=== PATIENT | male | born 1960 | race Caucasian/White ===

== ENCOUNTER 2022-05-31 08:30 | Inpatient (IN) | payer MEDICAID ==
[~2022-05-31] VITALS: Ht 172.7 cm; Wt 85.6 kg
[2022-05-31] MEDS ORDERED: OLAN10TA74 PO (08:34)
[2022-05-31] MEDS ORDERED: NITR0.4T52 SL (08:34)
[2022-05-31] MEDS ORDERED: SERT-158 PO (08:34)
[2022-05-31] MEDS ORDERED: QUET25TA PO (08:34)
[2022-05-31] MEDS ORDERED: FLUO10CA24 PO (08:34)
[2022-05-31 10:55] LABS: BASOPHILS % (AUTO) 0.4 % (0.0-2.0); EOSINOPHILS % (AUTO) 0.5 % (1.0-6.0); HEMATOCRIT 43.7 % (41-53); HEMOGLOBIN 14.8 g/dL (13.5-17.5); LYMPHOCYTES # (AUTO) 2.3 K/uL (1.0-4.8); LYMPHOCYTES % (AUTO) 29.8 % (22.0-44.0); MEAN CORPUSCULAR HEMOGLOBIN 32.4 pg (26.0-34.0); MEAN CORPUSCULAR HGB CONC 33.9 G/dL (31.0-37.0); MEAN CORPUSCULAR VOLUME 96 fL (80-100); MONOCYTES # (AUTO) 0.6 K/uL (0.1-1.0); MONOCYTES % (AUTO) 7.8 % (2.0-9.0); NEUTROPHILS # (AUTO) 4.8 K/uL (1.8-7.7); NEUTROPHILS % (AUTO) 61.5 % (40.0-70.0); PLATELET COUNT (AUTO) 289 K/uL (150-450); RED BLOOD CELL COUNT(AUTO) 4.58 MIL/uL (4.50-5.90); RED CELL DISTRIBUTION WIDTH 13.9 % (11.5-14.5)
[2022-05-31 11:04] LABS: ANION GAP 8 mmol/L (8-16); CALCIUM, TOTAL 9.5 mg/dL (8.8-10.5); CARBON DIOXIDE 29 mmol/L (22-29); CHLORIDE 104 mmol/L (98-107); CREATININE 0.85 mg/dL (0.60-1.30); GLOMERULAR FILTR. RATE CALC > 60 mL/min (>60); GLUCOSE,RANDOM 102 mg/dL (70-110); POTASSIUM 3.9 mmol/L (3.5-5.1); SODIUM SERUM 141 mmol/L (136-145); UREA NITROGEN, BLOOD 11 mg/dL (7-18)
[2022-05-31 11:10] LABS: ALANINE AMINOTRANSFERASE 27 U/L (12-78); ALBUMIN 4.1 g/dL (3.4-5.0); ALKALINE PHOSPHATASE 116 U/L (46-116); ASPARTATE AMINOTRANSFERASE 22 U/L (15-37); BILIRUBIN,TOTAL 0.6 mg/dL (0.1-1.0); TOTAL PROTEIN, SERUM 8.3 g/dL (6.4-8.2)
[2022-05-31] MEDS ORDERED: LORazepam 1 MG TABLET PO ONE (11:30)
[2022-05-31] MEDS ORDERED: LORazepam 2 MG TABLET PO PRN (11:45)
[2022-05-31] MEDS ORDERED: OLANZapine 5 MG TABLET PO ONE (12:00)
[2022-05-31 12:09] LABS: COVID AG,FIA SOURCE NASAL SWAB
[2022-05-31 15:45] VITALS: BP 124/82
[2022-05-31] MEDS: QUEtiapine FUMARATE 100 MG TABLET PO PRN (18:11)
[2022-06-01] MEDS: ZOLPIDEM TARTRATE 10 MG TABLET PO PRN (02:19)
[2022-06-01] MEDS: QUEtiapine FUMARATE 100 MG TABLET PO PRN ×2 (02:19→08:06)
[2022-06-01] MEDS ORDERED: LOPERAMIDE HCL 2 MG CAPSULE PO PRN (07:45)
[2022-06-01] MEDS ORDERED: MAGNESIUM HYDROXIDE SUSPENSION 30 ML UDCUP PO PRN (07:45)
[2022-06-01] MEDS ORDERED: GuaiFENesin/D-METHORPHAN [SUGAR-FREE] 200-20MG/10 ML SYRUP UDCUP PO PRN (07:45)
[2022-06-01] MEDS ORDERED: ALBUTEROL SULFATE HFA 90 MCG/PUFF 8 GM INHALER IH PRN (07:45)
[2022-06-01] MEDS ORDERED: IBUPROFEN 400 MG TABLET PO PRN (07:45)
[2022-06-01] MEDS ORDERED: CloNIDine HCL 0.1 MG TABLET PO PRN (07:45)
[2022-06-01] MEDS ORDERED: DOCUSATE SODIUM 100 MG CAPSULE PO PRN (07:45)
[2022-06-01] MEDS ORDERED: MAG HYDROX/AL HYDROX/SIMETH ES 30 ML SUSPENSION UDCUP PO PRN (07:45)
[2022-06-01] MEDS ORDERED: PETROLATUM,WHITE 28 GM JELLY TP PRN (07:45)
[2022-06-01] MEDS ORDERED: ACETAMINOPHEN 325 MG TABLET PO PRN (07:45)
[2022-06-01] MEDS ORDERED: NICOTINE 14 MG/24 HOUR PATCH TD PRN (07:45)
[2022-06-01] MEDS ORDERED: ONDANSETRON HCL 4 MG TABLET PO PRN (07:45)
[2022-06-01 08:35] VITALS: BP 111/71
[2022-06-01] MEDS: SERTRALINE HCL 100 MG TABLET PO SCH (13:09)
[2022-06-01] MEDS: QUEtiapine FUMARATE 25 MG TABLET PO SCH (13:09)
[2022-06-01 16:43] VITALS: BP 107/61
[2022-06-01] MEDS: QUEtiapine FUMARATE 300 MG TABLET PO SCH (20:01)
[2022-06-01] MEDS: MELATONIN 5 MG TABLET PO SCH (20:01)
[2022-06-02 08:13] VITALS: BP 146/84
[2022-06-02] MEDS: QUEtiapine FUMARATE 25 MG TABLET PO SCH (08:34)
[2022-06-02] MEDS: SERTRALINE HCL 100 MG TABLET PO SCH (08:34)
[2022-06-02 16:16] VITALS: BP 137/77
[2022-06-02] MEDS: QUEtiapine FUMARATE 300 MG TABLET PO SCH (20:15)
[2022-06-02] MEDS: ZOLPIDEM TARTRATE 10 MG TABLET PO PRN (20:15)
[2022-06-02] MEDS: MELATONIN 5 MG TABLET PO SCH (20:15)
[2022-06-03] MEDS: QUEtiapine FUMARATE 25 MG TABLET PO SCH (08:23)
[2022-06-03] MEDS: SERTRALINE HCL 100 MG TABLET PO SCH (08:23)
[2022-06-03 08:26] VITALS: BP 120/57
[2022-06-03 16:11] VITALS: BP 116/68
[2022-06-03] MEDS: APIXABAN 2.5 MG TABLET PO SCH (19:21)
[2022-06-03 20:14] VITALS: BP 117/71
[2022-06-03] MEDS: MELATONIN 5 MG TABLET PO SCH (20:22)
[2022-06-03] MEDS: ZOLPIDEM TARTRATE 10 MG TABLET PO PRN (20:22)
[2022-06-03] MEDS: QUEtiapine FUMARATE 300 MG TABLET PO SCH (20:22)
[2022-06-04] MEDS: APIXABAN 2.5 MG TABLET PO SCH ×2 (08:06→16:39)
[2022-06-04] MEDS: SERTRALINE HCL 100 MG TABLET PO SCH (08:07)
[2022-06-04] MEDS: QUEtiapine FUMARATE 25 MG TABLET PO SCH (08:07)
[2022-06-04 08:30] VITALS: BP 113/73
[2022-06-04 16:27] VITALS: BP 135/84
[2022-06-04] MEDS: ZOLPIDEM TARTRATE 10 MG TABLET PO PRN (20:28)
[2022-06-04] MEDS: QUEtiapine FUMARATE 300 MG TABLET PO SCH (20:29)
[2022-06-04] MEDS: MELATONIN 5 MG TABLET PO SCH (20:29)
[2022-06-04 20:39] VITALS: BP 108/68
[2022-06-05] MEDS: APIXABAN 2.5 MG TABLET PO SCH ×2 (08:16→17:33)
[2022-06-05] MEDS: SERTRALINE HCL 100 MG TABLET PO SCH (08:16)
[2022-06-05] MEDS: QUEtiapine FUMARATE 25 MG TABLET PO SCH (08:16)
[2022-06-05 08:56] VITALS: BP 125/79
[2022-06-05 16:22] VITALS: BP 105/62
[2022-06-05 20:12] VITALS: BP 130/81
[2022-06-05] MEDS: MELATONIN 5 MG TABLET PO SCH (20:48)
[2022-06-05] MEDS: QUEtiapine FUMARATE 300 MG TABLET PO SCH (20:48)
[2022-06-05] MEDS ORDERED: MELATONIN 5 MG TABLET PO SCH (21:00)
[2022-06-06 08:12] VITALS: BP 131/82
[2022-06-06] MEDS: APIXABAN 2.5 MG TABLET PO SCH ×2 (08:25→18:15)
[2022-06-06] MEDS: QUEtiapine FUMARATE 25 MG TABLET PO SCH (08:25)
[2022-06-06] MEDS: SERTRALINE HCL 100 MG TABLET PO SCH (08:25)
[2022-06-06 09:03] LABS: COVID AG,FIA SOURCE NASAL SWAB
[2022-06-06 16:22] VITALS: BP 141/84
[2022-06-06 20:39] VITALS: BP 134/82
[2022-06-06] MEDS: QUEtiapine FUMARATE 300 MG TABLET PO SCH (20:42)
[2022-06-06] MEDS: MELATONIN 5 MG TABLET PO SCH (20:43)
[2022-06-07] MEDS: QUEtiapine FUMARATE 25 MG TABLET PO SCH (08:12)
[2022-06-07] MEDS: APIXABAN 2.5 MG TABLET PO SCH (08:12)
[2022-06-07] MEDS: SERTRALINE HCL 100 MG TABLET PO SCH (08:12)
[2022-06-07 08:15] VITALS: BP 132/82
[2022-06-07] MEDS ORDERED: QUET300T19 PO (11:41)
[2022-06-07] MEDS ORDERED: QUET25TA36 PO (11:41)
[2022-06-07] MEDS ORDERED: MELA5TAB40 PO (11:41)
[2022-06-07] MEDS ORDERED: SERT-440 PO (11:41)
== END 2022-06-07 16:45 | disposition home or self-care (01) | DRG 750 ==
LOC: EMS 08:33 → B3A 12:03 → 3EC 16:26
PROVIDERS: ADMIT Psychiatry & Neurology Psychiatry; ATTEND Psychiatry & Neurology Psychiatry
DX: F25.1 Schizoaffective disorder, depressive type (principal); R45.851 Suicidal ideations; Z20.822 Contact with and (suspected) exposure to COVID-19; F43.12 Post-traumatic stress disorder, chronic; G47.00 Insomnia, unspecified; I10 Essential (primary) hypertension; I20.9 Angina pectoris, unspecified; J44.9 Chronic obstructive pulmonary disease, unspecified; K50.90 Crohn's disease, unspecified, without complications; Z79.899 Other long term (current) drug therapy; Z91.411 Personal history of adult psychological abuse; Z91.51 Personal history of suicidal behavior; Z91.013 Allergy to seafood
CPT/HCPCS: 80053; 85025; 99285; G0480; Q9967

== ENCOUNTER 2022-08-26 01:39 | Inpatient (IN) | payer MEDICAID ==
[~2022-08-26] VITALS: Ht 172.7 cm; Wt 189.9 kg
[~2022-08-26 01:39] MED LIST: MELA5TAB40 PO; QUET25TA36 PO; QUET300T19 PO; SERT-440 PO
[2022-08-26] MEDS ORDERED: RIVA10TA PO (02:07)
[2022-08-26] MEDS ORDERED: OLAN1TAB3 PO (02:07)
[2022-08-26] MEDS ORDERED: PRAZ2 PO (02:07)
[2022-08-26] MEDS ORDERED: OLAN10TA74 PO (02:07)
[2022-08-26] MEDS ORDERED: RISP1TAB98 PO (02:07)
[2022-08-26 02:55] LABS: ANION GAP 7 mmol/L (8-16); BASOPHILS % (AUTO) 1.1 % (0.0-2.0); CALCIUM, TOTAL 9.1 mg/dL (8.8-10.5); CARBON DIOXIDE 26 mmol/L (22-29); CHLORIDE 104 mmol/L (98-107); CREATININE 1.04 mg/dL (0.60-1.30); EOSINOPHILS % (AUTO) 0.9 % (1.0-6.0); GLOMERULAR FILTR. RATE CALC > 60 mL/min (>60); GLUCOSE,RANDOM 109 mg/dL (70-110); HEMATOCRIT 43.7 % (41-53); HEMOGLOBIN 14.8 g/dL (13.5-17.5); LYMPHOCYTES # (AUTO) 1.7 K/uL (1.0-4.8); LYMPHOCYTES % (AUTO) 19.8 % (22.0-44.0); MEAN CORPUSCULAR HEMOGLOBIN 32.1 pg (26.0-34.0); MEAN CORPUSCULAR HGB CONC 33.9 G/dL (31.0-37.0); MEAN CORPUSCULAR VOLUME 95 fL (80-100); MONOCYTES # (AUTO) 0.7 K/uL (0.1-1.0); MONOCYTES % (AUTO) 7.7 % (2.0-9.0); NEUTROPHILS # (AUTO) 6.2 K/uL (1.8-7.7); NEUTROPHILS % (AUTO) 70.5 % (40.0-70.0); PLATELET COUNT (AUTO) 262 K/uL (150-450); POTASSIUM 3.6 mmol/L (3.5-5.1); RED BLOOD CELL COUNT(AUTO) 4.61 MIL/uL (4.50-5.90); RED CELL DISTRIBUTION WIDTH 14.4 % (11.5-14.5); SODIUM SERUM 137 mmol/L (136-145)
[2022-08-26 03:01] LABS: ALANINE AMINOTRANSFERASE 21 U/L (12-78); ALBUMIN 3.4 g/dL (3.4-5.0); ALKALINE PHOSPHATASE 118 U/L (46-116); ASPARTATE AMINOTRANSFERASE 15 U/L (15-37); BILIRUBIN,TOTAL 0.2 mg/dL (0.1-1.0); TOTAL PROTEIN, SERUM 6.9 g/dL (6.4-8.2)
[2022-08-26 03:07] LABS: AMPHET/METH SCREEN,URINE NEGATIVE (NEGATIVE); BARBITURATE SCREEN, URINE NEGATIVE (NEGATIVE); BENZODIAZEPINES SCREEN,URINE NEGATIVE (NEGATIVE); CANNABINOID SCREEN,URINE NEGATIVE (NEGATIVE); COCAINE SCREEN,URINE NEGATIVE (NEGATIVE); METHADONE SCREEN, URINE NEGATIVE (NEGATIVE); OPIATE SCREEN,URINE NEGATIVE (NEGATIVE); PHENCYCLIDINE SCREEN,URINE NEGATIVE (NEGATIVE)
[2022-08-26] MEDS ORDERED: LORazepam 1 MG TABLET PO ONE (03:45)
[2022-08-26 05:48] LABS: COVID AG,FIA SOURCE NASAL SWAB
[2022-08-26] MEDS ORDERED: LORazepam 2 MG TABLET PO PRN (08:00)
[2022-08-26] MEDS ORDERED: HALOPERIDOL 5 MG TABLET PO PRN (08:00)
[2022-08-26 17:15] VITALS: BP 129/78; PULSE 105; RESP 18; TEMP 97.3; O2SAT 97
[2022-08-26] MEDS ORDERED: PNEUMOCOCCAL VACCINE POLYVALENT 0.5 ML VIAL [PPSV23] IM. ONE (18:15)
[2022-08-26 20:19] VITALS: RESP 17
[2022-08-27] MEDS ORDERED: ONDANSETRON HCL 4 MG TABLET PO PRN (06:30)
[2022-08-27] MEDS ORDERED: NICOTINE 14 MG/24 HOUR PATCH TD PRN (06:30)
[2022-08-27] MEDS ORDERED: ALBUTEROL SULFATE HFA 90 MCG/PUFF 8 GM INHALER IH PRN (06:30)
[2022-08-27] MEDS ORDERED: MAG HYDROX/AL HYDROX/SIMETH ES 30 ML SUSPENSION UDCUP PO PRN (06:30)
[2022-08-27] MEDS ORDERED: IBUPROFEN 400 MG TABLET PO PRN (06:30)
[2022-08-27] MEDS ORDERED: ACETAMINOPHEN 325 MG TABLET PO PRN (06:30)
[2022-08-27] MEDS ORDERED: CloNIDine HCL 0.1 MG TABLET PO PRN (06:30)
[2022-08-27] MEDS ORDERED: GuaiFENesin/D-METHORPHAN [SUGAR-FREE] 200-20MG/10 ML SYRUP UDCUP PO PRN (06:30)
[2022-08-27] MEDS ORDERED: DOCUSATE SODIUM 100 MG CAPSULE PO PRN (06:30)
[2022-08-27] MEDS ORDERED: PETROLATUM,WHITE 28 GM JELLY TP PRN (06:30)
[2022-08-27] MEDS ORDERED: MAGNESIUM HYDROXIDE SUSPENSION 30 ML UDCUP PO PRN (06:30)
[2022-08-27] MEDS ORDERED: LOPERAMIDE HCL 2 MG CAPSULE PO PRN (06:30)
[2022-08-27 09:07] VITALS: BP 105/60; PULSE 65; RESP 18; TEMP 97.6; O2SAT 99
[2022-08-27] MEDS: SERTRALINE HCL 100 MG TABLET PO SCH (13:05)
[2022-08-27] MEDS: QUEtiapine FUMARATE 25 MG TABLET PO SCH (16:24)
[2022-08-27] MEDS: PRAZOSIN HCL 2 MG CAPSULE PO SCH (20:48)
[2022-08-27] MEDS: MELATONIN 5 MG TABLET PO SCH (20:48)
[2022-08-27] MEDS: QUEtiapine FUMARATE 300 MG TABLET PO SCH (20:48)
[2022-08-27] MEDS ORDERED: MELATONIN 5 MG TABLET PO SCH (21:00)
[2022-08-27 21:01] VITALS: BP 120/64; PULSE 66; RESP 18; TEMP 98; O2SAT 96
[2022-08-28 08:10] VITALS: BP 102/68; PULSE 72; RESP 18; TEMP 97.5; O2SAT 98
[2022-08-28] MEDS: SERTRALINE HCL 100 MG TABLET PO SCH (09:38)
[2022-08-28] MEDS: QUEtiapine FUMARATE 25 MG TABLET PO SCH ×2 (09:38→17:08)
[2022-08-28 20:06] VITALS: RESP 18
[2022-08-28] MEDS: QUEtiapine FUMARATE 300 MG TABLET PO SCH (20:28)
[2022-08-28] MEDS: PRAZOSIN HCL 2 MG CAPSULE PO SCH (20:28)
[2022-08-28] MEDS: MELATONIN 5 MG TABLET PO SCH (20:29)
[2022-08-29] MEDS: SERTRALINE HCL 100 MG TABLET PO SCH (08:16)
[2022-08-29] MEDS: QUEtiapine FUMARATE 25 MG TABLET PO SCH ×2 (08:16→16:13)
[2022-08-29 09:00] VITALS: BP 101/59; PULSE 66; RESP 17; TEMP 97.8; O2SAT 98
[2022-08-29 10:18] VITALS: BP 101/59; PULSE 66; RESP 18; TEMP 97.8; O2SAT 98
[2022-08-29] MEDS: PRAZOSIN HCL 2 MG CAPSULE PO SCH (20:29)
[2022-08-29] MEDS: MELATONIN 5 MG TABLET PO SCH (20:29)
[2022-08-29] MEDS: QUEtiapine FUMARATE 300 MG TABLET PO SCH (20:29)
[2022-08-29] MEDS: ZOLPIDEM TARTRATE 10 MG TABLET PO PRN (20:50)
[2022-08-29 21:30] VITALS: BP_SYST 103; BP_DIAS 45; BP_DIAS 55; PULSE 65; RESP 17; TEMP 98.1; O2SAT 95
[2022-08-30] MEDS: QUEtiapine FUMARATE 25 MG TABLET PO SCH ×2 (08:48→16:10)
[2022-08-30] MEDS: SERTRALINE HCL 100 MG TABLET PO SCH (08:49)
[2022-08-30 10:17] VITALS: PULSE 61; RESP 18; TEMP 97.6; O2SAT 99
[2022-08-30] MEDS: MELATONIN 5 MG TABLET PO SCH (20:07)
[2022-08-30] MEDS: PRAZOSIN HCL 2 MG CAPSULE PO SCH (20:08)
[2022-08-30] MEDS: QUEtiapine FUMARATE 300 MG TABLET PO SCH (20:08)
[2022-08-30 20:16] VITALS: BP 114/66; PULSE 68; RESP 17; TEMP 98.3; O2SAT 95
[2022-08-31] MEDS: QUEtiapine FUMARATE 25 MG TABLET PO SCH ×2 (08:48→16:31)
[2022-08-31] MEDS: SERTRALINE HCL 100 MG TABLET PO SCH (08:48)
[2022-08-31 08:55] LABS: CHOL/HDL RATIO 2.3 (4.2-7.3)
[2022-08-31 10:09] VITALS: BP 98/55; PULSE 60; RESP 16; TEMP 96.8; O2SAT 97
[2022-08-31] MEDS: QUEtiapine FUMARATE 300 MG TABLET PO SCH (20:00)
[2022-08-31] MEDS: MELATONIN 5 MG TABLET PO SCH (20:00)
[2022-08-31] MEDS: PRAZOSIN HCL 2 MG CAPSULE PO SCH (20:00)
[2022-08-31 20:35] VITALS: BP 119/62; PULSE 61; RESP 18; TEMP 97.8; O2SAT 96
[2022-08-31] MEDS: ZOLPIDEM TARTRATE 10 MG TABLET PO PRN (20:40)
[2022-09-01] MEDS: SERTRALINE HCL 100 MG TABLET PO SCH (09:36)
[2022-09-01] MEDS: QUEtiapine FUMARATE 25 MG TABLET PO SCH ×2 (09:36→16:24)
[2022-09-01 15:39] VITALS: BP 157/94; PULSE 81; RESP 18; TEMP 97.2; O2SAT 81
[2022-09-01] MEDS: MELATONIN 5 MG TABLET PO SCH (20:20)
[2022-09-01] MEDS: QUEtiapine FUMARATE 300 MG TABLET PO SCH (20:20)
[2022-09-01] MEDS: PRAZOSIN HCL 2 MG CAPSULE PO SCH (20:20)
[2022-09-01 20:55] VITALS: BP 127/72; PULSE 60; RESP 19; TEMP 98.4; O2SAT 95
[2022-09-02] MEDS: QUEtiapine FUMARATE 25 MG TABLET PO SCH (09:00)
[2022-09-02] MEDS: SERTRALINE HCL 100 MG TABLET PO SCH (09:00)
[2022-09-02 09:45] VITALS: BP 83/60; PULSE 61; RESP 18; TEMP 96.9; O2SAT 95
[2022-09-02] MEDS ORDERED: MELA5TAB40 PO ×2 (11:20→14:50)
[2022-09-02] MEDS ORDERED: QUET25TA PO (12:15)
[2022-09-02] MEDS ORDERED: QUET25TA36 PO (14:50)
[2022-09-02] MEDS ORDERED: PRAZ2 PO (14:50)
[2022-09-02] MEDS ORDERED: SERT-440 PO (14:50)
[2022-09-02] MEDS ORDERED: QUET300T19 PO (14:50)
== END 2022-09-02 12:50 | disposition home or self-care (01) | DRG 750 ==
LOC: EMS 01:41 → 3EI 16:51
PROVIDERS: ADMIT Psychiatry & Neurology Psychiatry; ATTEND Psychiatry & Neurology Psychiatry
DX: F25.1 Schizoaffective disorder, depressive type (principal); R45.851 Suicidal ideations; F43.10 Post-traumatic stress disorder, unspecified; J44.9 Chronic obstructive pulmonary disease, unspecified; Z20.822 Contact with and (suspected) exposure to COVID-19; K50.90 Crohn's disease, unspecified, without complications; G47.00 Insomnia, unspecified; R00.0 Tachycardia, unspecified; Z79.899 Other long term (current) drug therapy; Z91.013 Allergy to seafood; Z59.00 Homelessness unspecified
CPT/HCPCS: 80053; 80061; 80307; 83036; 85025; 87081; 99285; G0480; Q9967